=== PATIENT | male | born 1965 | race African-American/Black ===

== ENCOUNTER 2017-10-17 23:14 | Emergency (ER) | payer OTHER ==
[2017-10-18 00:01] VITALS: BP 112/78; PULSE 74; TEMP 97.9; BMI 20.5
--- NOTE | 2017-10-18 00:43 | PDOC ---
History of Present Illness <Luz Camacho - Last Filed: 10/18/17 03:59> - History of Present Illness Initial Comments: 10/18/17 02:20 Patient is a 52 M with significant PMHx of bleeding stroke (2011), who presents to the ED with right-sided numbness and tingling in his fingers and hands. Patient states that his symptoms were similar to what he experienced when he had a stroke 5 years ago so he was worried and came to the ER. Patient denies any knowledge of other known medical issues. He states that at the time of his stroke years ago he had elevated blood pressure and as well as HLD. He also reports cold symptoms, congestion and headache. Reports normal appetite. Social Hx: Former smoker (quit after his stroke 5 yrs ago). Allergies: NKDA PCP: Diamond <Criss Washington - Last Filed: 10/18/17 04:02> - General Chief Complaint: Muscle Cramping Stated Complaint: FATIGUE Time Seen by Provider: 10/18/17 00:42 Past History - Past Medical History Anemia: No Asthma: No Cancer: No Cardiac Disorders: No CVA: Yes (ICA) COPD: No CHF: No Dementia: No Diabetes: No GI Disorders: No Disorders: No HTN: No Hypercholesterolemia: No Liver Disease: No Seizures: Yes Thyroid Disease: No - Surgical History Abdominal Surgery: No Appendectomy: No Cardiac Surgery: No Cholecystectomy: No Lung Surgery: No Neurologic Surgery: No Orthopedic Surgery: No - Suicide/Smoking/Psychosocial Hx Smoking Status: No Smoking History: Former smoker Have you smoked in the past 12 months: No Number of Cigarettes Smoked Daily: 0 Information on smoking cessation initiated: No 'Breaking Loose' booklet given: 09/04/12 Hx Alcohol Use: No Drug/Substance Use Hx: No Substance Use Type: None Hx Substance Use Treatment: No <Luz Camacho - Last Filed: 10/18/17 03:59> <Criss Washington - Last Filed: 10/18/17 04:02> - Past Medical History Allergies/Adverse Reactions: Allergies Allergy/AdvReac Type Severity Reaction Status Date / Time No Known Allergies Allergy Verified 10/18/17 00:01 Home Medications: Ambulatory Orders Levetiracetam [Keppra -] 250 mg PO DAILY #0 tablet 06/21/13 Fluticasone Prop 0.05% Nasal [Flonase] 1 - 2 spray NS DAILY PRN #1 spray.pump Review of Systems - Review of Systems Comments:: 10/18/17 02:27 GENERAL/CONSTITUTIONAL: No fever or chills. No weakness. HEAD, EYES, EARS, NOSE AND THROAT: No change in vision. No ear pain or discharge. No sore throat. +nasal congestion, clear discharge. CARDIOVASCULAR: No chest pain or shortness of breath. RESPIRATORY: No cough, wheezing, or hemoptysis. GASTROINTESTINAL: No nausea, vomiting, diarrhea or constipation. GENITOURINARY: No dysuria, frequency, or change in urination. MUSCULOSKELETAL: No joint or muscle swelling or pain. No neck or back pain. SKIN: No rash NEUROLOGIC: +headache, no vertigo, loss of consciousness, or change in strength. +right-sided numbness and tingling in extremities (hands and feet). ENDOCRINE: No increased thirst. No abnormal weight change. HEMATOLOGIC/LYMPHATIC: No anemia, easy bleeding, or history of blood clots. ALLERGIC/IMMUNOLOGIC: No hives or skin allergy. <Criss Washington - Last Filed: 10/18/17 04:02> *Physical Exam - Vital Signs Last Vital Signs Temp Pulse Resp BP Pulse Ox 97.9 F 74 18 112/78 99 10/17/17 23:57 10/17/17 23:57 10/17/17 23:57 10/17/17 23:57 10/17/17 23:57 <Luz Camacho - Last Filed: 10/18/17 03:59> - Vital Signs Last Vital Signs Temp Pulse Resp BP Pulse Ox 97.9 F 74 18 112/78 99 10/17/17 23:57 10/17/17 23:57 10/17/17 23:57 10/17/17 23:57 10/17/17 23:57 - Physical Exam Comments: 10/18/17 02:33 GENERAL: Awake, alert, and fully oriented, in no acute distress HEAD: No signs of trauma EYES: PERRLA, EOMI, sclera anicteric, conjunctiva clear ENT: Auricles normal inspection, hearing grossly normal, nares patent, oropharynx clear without exudates. Moist mucosa NECK: Normal ROM, supple, no lymphadenopathy, JVD, or masses LUNGS: Breath sounds equal, clear to auscultation bilaterally. No wheezes, and no crackles HEART: Regular rate and rhythm, normal S1 and S2, no murmurs, rubs or gallops ABDOMEN: Soft, nontender, normoactive bowel sounds. No guarding, no rebound. No masses EXTREMITIES: Normal range of motion, no edema. No clubbing or cyanosis. No cords, erythema, or tenderness NEUROLOGICAL: Cranial nerves II through XII grossly intact. Normal speech, normal gait SKIN: Warm, Dry, normal turgor, no rashes or lesions noted. <Criss Washington - Last Filed: 10/18/17 04:02> ED Treatment Course - LABORATORY CBC & Chemistry Diagram: 10/18/17 01:22 10/18/17 01:22 <CamachoLuz - Last Filed: 10/18/17 03:59> - LABORATORY CBC & Chemistry Diagram: 10/18/17 01:22 10/18/17 01:22 - ADDITIONAL ORDERS Additional order review: Laboratory Results 10/18/17 10/18/17 10/18/17 01:22 01:22 01:22 PT with INR 10.90 INR 0.96 PTT (Actin FS) 30.9 Sodium 137 Potassium 4.6 Chloride 103 Carbon Dioxide 28 Anion Gap 6 L BUN 14 Creatinine 0.9 Creat Clearance w eGFR > 60 Random Glucose 95 Calcium 8.7 Total Bilirubin 0.2 AST 16 ALT 24 Alkaline Phosphatase 52 Creatine Kinase 140 Troponin I < 0.02 Total Protein 7.2 Albumin 3.6 10/18/17 01:22 RBC 4.37 MCV 84.1 MCHC 32.8 RDW 15.0 MPV 7.2 L Neutrophils % 52.0 Lymphocytes % 31.3 Monocytes % 8.9 Eosinophils % 6.1 H Basophils % 1.7 - RADIOLOGY Radiograph Interpretation: 10/18/17 04:01 Comments: Enrique Narayanan MD wrote on Oct 18, 2017 at 03:44 AM: DATE OF SERVICE: 2017-10-18 03:04:03 FINDINGS: Serial axial unenhanced images of the brain are provided. There are no prior exams for comparison at this time. There is no acute intra-or extra-axial mass or fluid collections. There is no intracranial hemorrhage or infarct. There is no midline shift or mass effect . There is no hydrocephalus. The brain parenchyma is intact. The skull is intact. The visualized paranasal sinuses are without air-fluid level. A rounded density in the right maxillary sinus is compatible with mucous retention cyst.. The bilateral mastoid air cells are clear. IMPRESSION: NO ACUTE INTRACRANIAL ABNORMALITY. 10/18/2017 03:42 EST <Criss Washington - Last Filed: 10/18/17 04:02> *DC/Admit/Observation/Transfer - Discharge Dispostion Admit: No <Luz Camacho - Last Filed: 10/18/17 03:59> - Attestations Scribe Attestion: 10/18/17 02:33 Documentation prepared by Criss Washington, acting as medical attendant for Luz Camacho MD. <Criss Washington - Last Filed: 10/18/17 04:02> Diagnosis at time of Disposition: Numbness and tingling, Headache - Discharge Dispostion Disposition: HOME Condition at time of disposition: Stable - Patient Instructions Printed Discharge Instructions: DI for Headache
[2017-10-18 01:34] LABS: BASO % 1.7 % (0-2.0); EOS % 6.1 % (0-4.5); HEMATOCRIT 36.8 % (35.4-49); HEMOGLOBIN 12.1 GM/dL (11.7-16.9); LYMPH % 31.3 % (8-40); MCH 27.6 pg (25.7-33.7); MCHC 32.8 g/dl (32.0-35.9); MEAN CELL VOLUME 84.1 fl (80-96); MEAN PLT VOLUME 7.2 fl (7.5-11.1); MONO % 8.9 % (3.8-10.2); PLATELET COUNT 258 K/MM3 (134-434); RBC 4.37 M/mm3 (4.00-5.60)
[2017-10-18 01:51] LABS: INR 0.96 (0.82-1.09); PROTHROMBIN TIME (PATIENT) 10.9 SEC (9.98-11.88)
[2017-10-18 01:59] LABS: ALBUMIN 3.6 g/dl (3.4-5.0); ANION GAP 6 (8-16); BILIRUBIN,TOTAL 0.2 mg/dL (0.2-1.0); BLOOD UREA NITROGEN 14 mg/dL (7-18); CALCIUM 8.7 mg/dL (8.5-10.1); CHLORIDE 103 mmol/L (98-107); CO2 28 mmol/L (21-32); CREATININE 0.9 mg/dL (0.7-1.3); GLUCOSE,RANDOM 95 mg/dL (74-106); POTASSIUM 4.6 mmol/L (3.5-5.1); SGOT/AST 16 U/L (15-37); SGPT/ALT 24 U/L (12-78); SODIUM 137 mmol/L (136-145); TOT PROT 7.2 g/dl (6.4-8.2)
[2017-10-18 02:03] LABS: ALK PHOS 52 U/L (45-117)
== END 2017-10-18 04:14 | disposition home or self-care (01) ==
LOC: JER 23:14
DX: R51 Headache (principal); R20.0 Anesthesia of skin; Z86.73 Personal history of transient ischemic attack (TIA), and cerebral infarction without residual deficits; G40.909 Epilepsy, unspecified, not intractable, without status epilepticus
CPT/HCPCS: 36415; 70450-TC; 80053; 82550; 84484; 85025; 85610; 85730; 99281-25

== ENCOUNTER 2018-06-15 22:10 | Emergency (ER) | payer OTHER ==
[2018-06-15 22:35] VITALS: BP 108/76; PULSE 65; TEMP 98.8; BMI 20.5
[2018-06-15] MEDS ORDERED: AMOXICILLIN 500 MG CAPSULE (FP) PO ONE (22:44)
[2018-06-15] MEDS ORDERED: AMOXICILLIN 250 MG CAPSULE ONE (22:46)
--- NOTE | 2018-06-15 22:50 | PDOC ---
History of Present Illness - General Chief Complaint: Toothache Stated Complaint: TOOTHACHE Time Seen by Provider: 06/15/18 22:35 Past History - Past Medical History Allergies/Adverse Reactions: Allergies Allergy/AdvReac Type Severity Reaction Status Date / Time No Known Allergies Allergy Verified 10/18/17 00:01 Home Medications: Ambulatory Orders Amoxicillin - [Amoxicillin 500mg Capsule -] 500 mg PO BID #14 capsule 06/15/18 Ibuprofen 800 mg PO TID #30 tablet 06/15/18 Anemia: No Asthma: No Cancer: No Cardiac Disorders: No CVA: Yes (ICA) COPD: No CHF: No Dementia: No Diabetes: No GI Disorders: No Disorders: No HTN: No Hypercholesterolemia: No Liver Disease: No Seizures: Yes Thyroid Disease: No - Surgical History Abdominal Surgery: No Appendectomy: No Cardiac Surgery: No Cholecystectomy: No Lung Surgery: No Neurologic Surgery: No Orthopedic Surgery: No - Suicide/Smoking/Psychosocial Hx Smoking Status: No Smoking History: Never smoked Have you smoked in the past 12 months: No Number of Cigarettes Smoked Daily: 0 Information on smoking cessation initiated: No 'Breaking Loose' booklet given: 09/04/12 Hx Alcohol Use: No Drug/Substance Use Hx: No Substance Use Type: None Hx Substance Use Treatment: No *Physical Exam - Vital Signs Last Vital Signs Temp Pulse Resp BP Pulse Ox 98.8 F 65 18 108/76 100 06/15/18 22:30 06/15/18 22:30 06/15/18 22:30 06/15/18 22:30 06/15/18 22:30 ED Treatment Course - Medications Given in the ED: ED Medications Discontinued Medications Generic Name Dose Route Start Last Admin Trade Name Philip PRN Reason Stop Dose Admin Amoxicillin 500 mg 06/15/18 22:44 06/15/18 22:47 Amoxicillin - PO 06/15/18 22:45 500 mg ONCE ONE Administration *DC/Admit/Observation/Transfer Diagnosis at time of Disposition: Toothache - Discharge Dispostion Disposition: HOME Condition at time of disposition: Stable Decision to Admit order: No - Referrals - Patient Instructions Printed Discharge Instructions: DI for Tooth Decay Additional Instructions: You have multiple cavities to your teeth Please take the amoxicillin twice a day for a week; you got your first dose in the ED Follow up with your dentist tomorrow You may take Motrin 800mg as needed for pain. Return to the ED for any new or worsening symptoms [facility] Address: [address] [place] [id number] - Post Discharge Activity
== END 2018-06-15 22:53 | disposition home or self-care (01) ==
LOC: JERFT 22:10
DX: K08.89 Other specified disorders of teeth and supporting structures (principal); Z86.73 Personal history of transient ischemic attack (TIA), and cerebral infarction without residual deficits; R56.9 Unspecified convulsions
CPT/HCPCS: 99281-25

== ENCOUNTER 2021-09-15 07:33 | Emergency (ER) | payer OTHER ==
[2021-09-15 07:58] VITALS: BP 132/84; PULSE 89; TEMP 98.3
[2021-09-15] MEDS ORDERED: SODIUM CHLORIDE 0.9% 500 ML INFUS.BAG IV ONE (08:15)
[2021-09-15] MEDS ORDERED: METOCLOPRAMIDE HCL INJECTION 10 MG/2 ML VIAL IVPUSH ONE (08:15)
[2021-09-15] MEDS ORDERED: ACETAMINOPHEN 1000 MG/100 ML VIAL IVPB ONE (08:15)
[2021-09-15] MEDS ORDERED: METOCLOPRAMIDE HCL INJECTION 10 MG/2 ML VIAL ONE (08:26)
[2021-09-15] MEDS ORDERED: ACETAMINOPHEN INJECTION 100 ML IVPB ONE (08:26)
== END 2021-09-15 10:46 | disposition home or self-care (01) ==
LOC: JER 07:33
PROC: 3E033GC Introduction of Other Therapeutic Substance into Peripheral Vein, Percutaneous Approach (ICD-10-PCS; principal; 2021-09-15)
DX: G44.209 Tension-type headache, unspecified, not intractable (principal)
CPT/HCPCS: 70450-TC; 99285-25; J0131